=== PATIENT | male | born 1950 | race Caucasian/White ===

== ENCOUNTER 2021-07-12 13:02 | Inpatient (IN) | payer MEDICARE, MEDICAID ==
[~2021-07-12 13:02] MED LIST: Rocuronium Bromide 10 MG/ML (10ML VIAL) ONE
[2021-07-12] MEDS ORDERED: Ketamine 50 MG/ML (10ML VIAL) ONE (13:11)
[2021-07-12] MEDS ORDERED: EPINEPHrine 1 MG/10 ML Abboject SYRINGE ONE (13:15)
[2021-07-12] MEDS ORDERED: Amiodarone 150 MG/3 ML VIAL ONE (13:26)
[2021-07-12] MEDS ORDERED: Magnesium 2 GM/50 ML BAG (IN WATER) ONE (13:27)
[2021-07-12] MEDS ORDERED: Amiodarone In Dextrose 0 ML ONE (13:29)
[2021-07-12 13:34] LABS: #Monocytes 0.7 10x3/uL (0.0-1.1); #Neutrophils 12.1 10x3/uL (1.5-8.4); %Basophils 0.3 % (0.0-2.0); %Eosinophils 0.3 % (0.0-6.0); %Lymphocytes 4.1 % (18.0-47.0); %Monocytes 5.2 % (0.0-10.0); %Neutrophils 89.4 % (40.0-75.0); Hemoglobin 13.6 g/dL (13.5-17.5); Mean Corpuscular Hemoglobin 31.4 pg (27.0-33.0); Mean Corpuscular Volume 104.6 fl (81.2-95.1); Mean Platelet Volume 11.2 fl (7.4-10.4); Platelet Count 209 10x3/uL (150-450); RBC Distribution Width 14.4 % (11.5-14.5); Red Blood Cell (RBC) Count 4.33 10x6/uL (4.32-5.72); White Blood Cell (WBC) Count 13.6 10x3/uL (3.5-10.5)
[2021-07-12] MEDS ORDERED: Norepinephrine 8 MG/0.9% NS 250 ML ONE (13:37)
[2021-07-12 13:42] LABS: PTT 25.9 sec (22.0-33.0); Prothrombin Time 10.6 sec (9.5-12.1)
[2021-07-12 13:46] LABS: ALT (SGPT) 27 U/L (8-55); AST (SGOT) 25 U/L (5-34); Albumin 3.5 g/dL (3.4-4.8); Alkaline Phosphatase 101 U/L (40-110); Anion Gap 13 mmol/L (10-20); BUN (Urea Nitrogen) 28 mg/dL (8.4-25.7); Bilirubin, Total 0.3 mg/dL (0.2-1.2); Calc. Creatinine Clearance 0 mL/min (70-130); Calcium 9.2 mg/dL (7.8-10.44); Carbon Dioxide 35 mmol/L (23-31); Chloride 105 mmol/L (98-107); Globulin 3.3 g/dL (2.4-3.5); Glucose 131 mg/dL (83-110); Potassium 4.4 mmol/L (3.5-5.1); Protein, Total 6.8 g/dL (5.8-8.1); Sodium 149 mmol/L (136-145)
[2021-07-12 13:53] LABS: Actual Bicarbonate (HCO3a) 29.2 mEq/L (22-28); Base Excess (BEa) 3.1 mEq/L (-2.0 to +3.0); CO2 Tension 50.9 mmHg (35.0-45.0); Carboxyhemoglobin (COHb) 0.8 gm% (0.0-3.0); Hemoglobin (Hb) 13.5 g/dL (14.0-18.0); O2 Tension (PaO2), arterial 76.2 mmHg (> 70.0); Potassium - ABG Lab 4.2 mmol/L (3.70-5.30); Puncture Site LRA; pH, Arterial 7.38 (7.35-7.45)
[2021-07-12 13:56] LABS: ALV-art Gradient 573.175 mmHg (0-20)
[2021-07-12] MEDS ORDERED: Cefepime 2 GM VIAL ONE (14:03)
[2021-07-12 14:53] LABS: Bilirubin Neg (Negative); Blood, Urine 250 (Negative); Clarity Slightly Cloudy (Clear); Glucose, Urine (Dipstick) Normal (Negative); Ketone, Urine Negative (Negative); Leukocyte Negative (Negative); Nitrite Negative (Negative); Protein, Urine (Dipstick) 30 mg/dl (Neg-Trace); Urobilinogen Normal mg/dL (Less than 2)
[2021-07-12 15:15] LABS: SARS-CoV-2 NAA Rapid Test Not Detected (NotDetected)
[2021-07-12 15:25] LABS: RBC/HPF Greater than 50 HPF (0-3)
[2021-07-12 15:26] LABS: Bacteria/HPF 2+ HPF (None Seen); Squamous Epithelial 0-3 HPF (0-3)
[2021-07-12 15:27] LABS: Mucous/LPF 1+ LPF (<2+)
[2021-07-12 16:11] LABS: Lactic Acid 4.3 mmol/L (0.5-2.2)
[2021-07-12 16:49] LABS: Troponin I 0.304 ng/mL (< 0.028)
[2021-07-12] MEDS ORDERED: Acetaminophen 325 MG TAB PO PRN (16:55)
[2021-07-12] MEDS ORDERED: Acetaminophen 650 MG Suppository PR PRN (16:55)
[2021-07-12 17:23] LABS: Magnesium 2.5 mg/dL (1.6-2.6)
[2021-07-12] MEDS ORDERED: VANCOMYCIN 1.25 GM/250 ML BAG 1.25 GM in Premix Bag 1 BAG IVPB SCH (17:45)
[2021-07-12] MEDS: Cefepime 2 GM in Sodium Chloride 0.9% 100 ML IVPB SCH (18:00)
[2021-07-12] MEDS: Norepinephrine 8 MG/0.9% NS 250 ML IVPB PRN (18:40)
[2021-07-12] MEDS ORDERED: fentaNYL Citrate-0.9 % NaCl/PF 100 ML IVPB SCH (18:45)
[2021-07-12] MEDS: Sodium Chloride 0.45% 1,000 ML IV SCH (19:28)
[2021-07-12 19:41] LABS: Troponin I 0.978 ng/mL (< 0.028)
[2021-07-12] MEDS ORDERED: Vancomycin HCl 1.5 GM in Sodium Chloride 0.9% 250 ML 300 ML IVPB SCH (21:00)
[2021-07-12] MEDS: Famotidine/PF 20 mg/2ml Vial SLOW IVP SCH (21:07)
[2021-07-12] MEDS ORDERED: Vasopressin 20 UNIT, Admixture Fee 1 EACH in Sodium Chloride 0.9% 50 ML IV PRN (21:21)
[2021-07-12] MEDS ORDERED: Sodium Chloride 0.9% 1,000 ML IV SCH (22:00)
[2021-07-13] MEDS: Norepinephrine 8 MG/0.9% NS 250 ML IVPB PRN ×2 (00:55→10:22)
[2021-07-13 03:14] LABS: Base Excess (BEa) 2.2 mEq/L (-2.0 to +3.0); CO2 Tension 29.2 mmHg (35.0-45.0); Calcium, Ionized (arterial) 1.09 mmol/L (1.12-1.30); Carboxyhemoglobin (COHb) 0.5 gm% (0.0-3.0); Critical Notified Whom: SPESC; Hemoglobin (Hb) 12.9 g/dL (14.0-18.0); O2 Tension (PaO2), arterial 129.6 mmHg (> 70.0); Potassium - ABG Lab 4.4 mmol/L (3.70-5.30); Puncture Site RRA; pH, Arterial 7.53 (7.35-7.45)
[2021-07-13 04:29] LABS: Anion Gap 17 mmol/L (10-20); BUN (Urea Nitrogen) 35 mg/dL (8.4-25.7); Calc. Creatinine Clearance 57 mL/min (70-130); Calcium 8.3 mg/dL (7.8-10.44); Carbon Dioxide 25 mmol/L (23-31); Chloride 108 mmol/L (98-107); Glucose 100 mg/dL (83-110); Hemoglobin 11.9 g/dL (13.5-17.5); Magnesium 2.3 mg/dL (1.6-2.6); Mean Corpuscular Hemoglobin 30.9 pg (27.0-33.0); Mean Corpuscular Volume 99.7 fl (81.2-95.1); Mean Platelet Volume 11.2 fl (7.4-10.4); Platelet Count 217 10x3/uL (150-450); Potassium 4.2 mmol/L (3.5-5.1); RBC Distribution Width 14.6 % (11.5-14.5); Red Blood Cell (RBC) Count 3.85 10x6/uL (4.32-5.72); Sodium 146 mmol/L (136-145); White Blood Cell (WBC) Count 18.9 10x3/uL (3.5-10.5)
[2021-07-13 04:43] LABS: MDiff Complete? YES
[2021-07-13 04:47] LABS: Band 9 % (5-11); Lymphocytes 5 % (21-51); Monocytes 5 % (0-10); Neutrophil 81 % (42-75)
[2021-07-13 04:48] LABS: Platelet Morphology Comment Appears Adequate; RBC Morphology Normal
[2021-07-13] MEDS: Midazolam HCl 2 mg/2 ml Vial SLOW IVP PRN ×2 (05:08→08:38)
[2021-07-13] MEDS: Cefepime 2 GM in Sodium Chloride 0.9% 100 ML IVPB SCH ×2 (05:08→16:47)
[2021-07-13] MEDS: Sodium Chloride 0.45% 1,000 ML IV SCH ×2 (07:00→15:30)
[2021-07-13] MEDS: Famotidine/PF 20 mg/2ml Vial SLOW IVP SCH ×2 (08:38→21:01)
[2021-07-13] MEDS: Enoxaparin Sodium 40 MG/0.4 ML SYRINGE SC SCH (08:38)
[2021-07-13] MEDS: Aspirin 81 mg Enteric Coated Tablet PO SCH ×2 (08:38→09:18)
[2021-07-13] MEDS ORDERED: Fentanyl BOLUS 250 ML IVPB PRN (10:15)
[2021-07-13] MEDS ORDERED: Morphine 2 MG/ML VIAL SLOW IVP PRN (10:15)
[2021-07-13] MEDS ORDERED: Lorazepam 2 MG/ML VIAL SLOW IVP PRN (10:15)
[2021-07-13] MEDS ORDERED: Ventilator Sedation Protocol 1 EACH FS PRN (10:15)
[2021-07-13] MEDS ORDERED: Propofol BOLUS 1,000 MG/100 ML VIAL IV PRN (10:15)
[2021-07-13] MEDS: Propofol 1,000 MG/100 ML VIAL IV PRN ×3 (10:22→21:01)
[2021-07-13 12:45] LABS: Hemoglobin A1c 5.3 % (4.0-6.0)
[2021-07-13] MEDS: metroNIDAZOLE 500 MG in Premix Bag 1 BAG IVPB SCH ×2 (13:44→21:01)
[2021-07-13] MEDS: Dextrose 5 %-0.45 % NaCl 1,000 ML IV SCH (16:40)
[2021-07-13] MEDS: Vancomycin HCl 1 GM in Sodium Chloride 0.9% 250 ML 250 ML IVPB SCH (17:55)
[2021-07-13] MEDS: fentaNYL Citrate-0.9 % NaCl/PF 100 ML IVPB SCH (18:58)
[2021-07-13 21:53] LABS: Legionella Urinary Ag Negative (Negative); Strep pneumo Urine Ag NEGATIVE (NEGATIVE)
[2021-07-14] MEDS: Dextrose 5 %-0.45 % NaCl 1,000 ML IV SCH ×2 (01:48→13:11)
[2021-07-14 04:28] LABS: #Monocytes 0.5 10x3/uL (0.0-1.1); #Neutrophils 9.9 10x3/uL (1.5-8.4); %Basophils 0.1 % (0.0-2.0); %Lymphocytes 3.8 % (18.0-47.0); %Monocytes 4.4 % (0.0-10.0); %Neutrophils 90.1 % (40.0-75.0); Mean Corpuscular HGB CONC 33.3 g/dL (32.0-36.0); Mean Corpuscular Hemoglobin 31.4 pg (27.0-33.0); Mean Corpuscular Volume 94.3 fl (81.2-95.1); Mean Platelet Volume 11.4 fl (7.4-10.4); Platelet Count 181 10x3/uL (150-450); RBC Distribution Width 15.2 % (11.5-14.5); Red Blood Cell (RBC) Count 3.18 10x6/uL (4.32-5.72); White Blood Cell (WBC) Count 10.9 10x3/uL (3.5-10.5)
[2021-07-14 04:50] LABS: ALT (SGPT) 14 U/L (8-55); AST (SGOT) 14 U/L (5-34); Albumin 2.4 g/dL (3.4-4.8); Alkaline Phosphatase 66 U/L (40-110); Anion Gap 16 mmol/L (10-20); BUN (Urea Nitrogen) 34 mg/dL (8.4-25.7); Bilirubin, Direct 0.2 mg/dL (0.1-0.3); Bilirubin, Total 0.3 mg/dL (0.2-1.2); Calc. Creatinine Clearance 59 mL/min (70-130); Carbon Dioxide 21 mmol/L (23-31); Cardiac Risk 2.5 (Less than 4.5); Chloride 111 mmol/L (98-107); Cholesterol 99 mg/dl (< 200 Desired); Glucose 126 mg/dL (83-110); HDL Cholesterol 39 mg/dL (>60 Neg Risk); LDL Cholesterol, Calculated 42 mg/dL; Magnesium 2.3 mg/dL (1.6-2.6); Potassium 3.5 mmol/L (3.5-5.1); Protein, Total 5.1 g/dL (5.8-8.1); Sodium 144 mmol/L (136-145); Triglycerides 88 mg/dL (Less than 150)
[2021-07-14] MEDS: fentaNYL Citrate-0.9 % NaCl/PF 100 ML IVPB SCH ×2 (05:42→20:26)
[2021-07-14] MEDS: Propofol 1,000 MG/100 ML VIAL IV PRN ×2 (05:42→18:19)
[2021-07-14] MEDS: Cefepime 2 GM in Sodium Chloride 0.9% 100 ML IVPB SCH ×2 (05:42→17:11)
[2021-07-14] MEDS: metroNIDAZOLE 500 MG in Premix Bag 1 BAG IVPB SCH ×3 (05:42→22:45)
[2021-07-14] MEDS: Aspirin 81 mg Enteric Coated Tablet PO SCH (08:07)
[2021-07-14] MEDS: Enoxaparin Sodium 40 MG/0.4 ML SYRINGE SC SCH (08:07)
[2021-07-14] MEDS: Famotidine/PF 20 mg/2ml Vial SLOW IVP SCH (08:09)
[2021-07-14 10:51] LABS: Actual Bicarbonate (HCO3a) 23.2 mEq/L (22-28); Base Excess (BEa) 2.2 mEq/L (-2.0 to +3.0); CO2 Tension 24.8 mmHg (35.0-45.0); Calcium, Ionized (arterial) 1.09 mmol/L (1.12-1.30); Carboxyhemoglobin (COHb) 0.3 gm% (0.0-3.0); Hemoglobin (Hb) 9.9 g/dL (14.0-18.0); O2 Tension (PaO2), arterial 184.7 mmHg (> 70.0); Potassium - ABG Lab 3.2 mmol/L (3.70-5.30); Puncture Site RRA; pH, Arterial 7.59 (7.35-7.45)
[2021-07-14 11:27] LABS: Actual Bicarbonate (HCO3a) 23.5 mEq/L (22-28); Base Excess (BEa) 1.1 mEq/L (-2.0 to +3.0); CO2 Tension 29.4 mmHg (35.0-45.0); Calcium, Ionized (arterial) 1.12 mmol/L (1.12-1.30); O2 Tension (PaO2), arterial 151.4 mmHg (> 70.0); Puncture Site RRA; pH, Arterial 7.52 (7.35-7.45)
[2021-07-14] MEDS: Furosemide 40 MG/4 ML VIAL SLOW IVP SCH ×2 (11:54→18:39)
[2021-07-14] MEDS: Albumin 25% 25 GM/100 ML BOT IVPB SCH ×2 (11:54→18:39)
[2021-07-14 11:59] LABS: CKMB 2.8 ng/mL (0-6.6)
[2021-07-14] MEDS ORDERED: Aspirin Chewable 81 MG TAB PO SCH (12:30)
[2021-07-14] MEDS: Aspirin Chewable 81 MG TAB PO SCH (13:10)
[2021-07-14] MEDS: Norepinephrine 8 MG/0.9% NS 250 ML IVPB PRN (13:22)
[2021-07-14 17:14] LABS: Vancomycin, Trough 14.3 ug/mL
[2021-07-14] MEDS: Vancomycin HCl 1 GM in Sodium Chloride 0.9% 250 ML 250 ML IVPB SCH (17:19)
[2021-07-15] MEDS: Albumin 25% 25 GM/100 ML BOT IVPB SCH (02:17)
[2021-07-15] MEDS: Furosemide 40 MG/4 ML VIAL SLOW IVP SCH (02:17)
[2021-07-15] MEDS: Cefepime 2 GM in Sodium Chloride 0.9% 100 ML IVPB SCH ×2 (06:06→16:43)
[2021-07-15] MEDS: Dextrose 5 %-0.45 % NaCl 1,000 ML IV SCH ×2 (06:06→08:08)
[2021-07-15] MEDS: metroNIDAZOLE 500 MG in Premix Bag 1 BAG IVPB SCH ×3 (06:07→21:52)
[2021-07-15 06:08] LABS: #Monocytes 0.6 10x3/uL (0.0-1.1); #Neutrophils 8.4 10x3/uL (1.5-8.4); %Basophils 0.4 % (0.0-2.0); %Eosinophils 0.2 % (0.0-6.0); %Lymphocytes 5.2 % (18.0-47.0); %Monocytes 5.9 % (0.0-10.0); %Neutrophils 85.5 % (40.0-75.0); Mean Corpuscular HGB CONC 32.2 g/dL (32.0-36.0); Mean Corpuscular Hemoglobin 31.2 pg (27.0-33.0); Mean Corpuscular Volume 96.9 fl (81.2-95.1); Mean Platelet Volume 11.8 fl (7.4-10.4); Platelet Count 160 10x3/uL (150-450); RBC Distribution Width 15.4 % (11.5-14.5); Red Blood Cell (RBC) Count 3.21 10x6/uL (4.32-5.72); White Blood Cell (WBC) Count 9.8 10x3/uL (3.5-10.5)
[2021-07-15 06:19] LABS: Anion Gap 18 mmol/L (10-20); BUN (Urea Nitrogen) 32 mg/dL (8.4-25.7); Calc. Creatinine Clearance 57 mL/min (70-130); Calcium 8.5 mg/dL (7.8-10.44); Carbon Dioxide 22 mmol/L (23-31); Chloride 111 mmol/L (98-107); Glucose 82 mg/dL (83-110); Magnesium 2.2 mg/dL (1.6-2.6); Sodium 148 mmol/L (136-145)
[2021-07-15 06:34] LABS: Actual Bicarbonate (HCO3a) 23.7 mEq/L (22-28); Base Excess (BEa) -0.1 mEq/L (-2.0 to +3.0); CO2 Tension 35.3 mmHg (35.0-45.0); Calcium, Ionized (arterial) 1.12 mmol/L (1.12-1.30); Carboxyhemoglobin (COHb) 0.3 gm% (0.0-3.0); Hemoglobin (Hb) 10.5 g/dL (14.0-18.0); O2 Tension (PaO2), arterial 135.7 mmHg (> 70.0); Potassium - ABG Lab 2.9 mmol/L (3.70-5.30); Puncture Site RRA; pH, Arterial 7.45 (7.35-7.45)
[2021-07-15 06:37] LABS: ALV-art Gradient 69.725 mmHg (0-20)
[2021-07-15] MEDS: Enoxaparin Sodium 40 MG/0.4 ML SYRINGE SC SCH (08:05)
[2021-07-15] MEDS: Aspirin Chewable 81 MG TAB PO SCH (08:05)
[2021-07-15] MEDS: Famotidine/PF 20 mg/2ml Vial SLOW IVP SCH (08:08)
[2021-07-15] MEDS ORDERED: Potassium Bicarbonate/Cit Ac 20 MEQ TAB PER TUBE SCH ×2 (08:15→13:30)
[2021-07-15] MEDS ORDERED: Lactated Ringer's 1,000 ML IV SCH (10:30)
[2021-07-15] MEDS: Propofol 1,000 MG/100 ML VIAL IV PRN ×2 (10:41→23:55)
[2021-07-15] MEDS: fentaNYL Citrate-0.9 % NaCl/PF 100 ML IVPB SCH ×2 (10:48→23:55)
[2021-07-15] MEDS ORDERED: Albumin 25% 25 GM/100 ML BOT IVPB SCH (11:00)
[2021-07-15] MEDS: Dexmedetomidine In 0.9 % NaCl 100 ML IVPB SCH (13:48)
[2021-07-15] MEDS ORDERED: Midazolam HCl 2 mg/2 ml Vial SLOW IVP PRN (18:27)
[2021-07-15] MEDS: Fentanyl 100 MCG/2 ML VIAL SLOW IVP PRN (18:44)
[2021-07-15] MEDS ORDERED: Sodium Chloride 0.9% 500 ML IVPB SCH (18:45)
[2021-07-16] MEDS ORDERED: OLANZapine 5 MG TAB PER TUBE SCH (00:45)
[2021-07-16] MEDS: OLANZapine 5 MG TAB PER TUBE SCH (01:06)
[2021-07-16 03:55] LABS: #Basophils 0.1 10x3/uL (0.0-0.2); #Monocytes 0.4 10x3/uL (0.0-1.1); #Neutrophils 8.1 10x3/uL (1.5-8.4); %Basophils 0.5 % (0.0-2.0); %Eosinophils 0.4 % (0.0-6.0); %Lymphocytes 6.3 % (18.0-47.0); %Monocytes 4.2 % (0.0-10.0); %Neutrophils 83.1 % (40.0-75.0); Mean Corpuscular HGB CONC 32.3 g/dL (32.0-36.0); Mean Corpuscular Hemoglobin 31.2 pg (27.0-33.0); Mean Corpuscular Volume 96.6 fl (81.2-95.1); Mean Platelet Volume 11.6 fl (7.4-10.4); Platelet Count 177 10x3/uL (150-450); RBC Distribution Width 15.5 % (11.5-14.5); Red Blood Cell (RBC) Count 3.21 10x6/uL (4.32-5.72); White Blood Cell (WBC) Count 9.7 10x3/uL (3.5-10.5)
[2021-07-16 04:08] LABS: Anion Gap 11 mmol/L (10-20); BUN (Urea Nitrogen) 35 mg/dL (8.4-25.7); Calc. Creatinine Clearance 62 mL/min (70-130); Calcium 7.8 mg/dL (7.8-10.44); Carbon Dioxide 26 mmol/L (23-31); Chloride 113 mmol/L (98-107); Glucose 122 mg/dL (83-110); Magnesium 1.9 mg/dL (1.6-2.6); Potassium 3.2 mmol/L (3.5-5.1); Sodium 147 mmol/L (136-145)
[2021-07-16] MEDS: Potassium Chloride 20 MEQ in Premix Bag 1 BAG IVPB SCH ×2 (04:57→08:43)
[2021-07-16] MEDS: Cefepime 2 GM in Sodium Chloride 0.9% 100 ML IVPB SCH ×2 (04:57→17:56)
[2021-07-16] MEDS ORDERED: Cefepime 2 GM VIAL ONE (04:58)
[2021-07-16] MEDS: Fentanyl 100 MCG/2 ML VIAL SLOW IVP PRN (05:51)
[2021-07-16] MEDS: metroNIDAZOLE 500 MG in Premix Bag 1 BAG IVPB SCH ×3 (05:52→21:08)
[2021-07-16 06:00] LABS: Anisocytosis SLIGHT = 6-15 cells (100X) (0-5/hpf); Lymphocytes 8 % (21-51); Monocytes 4 % (0-10); Platelet Morphology Comment Appears Adequate
[2021-07-16 06:01] LABS: Hypochromia SLIGHT = 6-15 cells (100X) (0-5/hpf); Macrocytosis SLIGHT = 6-15 cells (100X) (0-5/hpf); Microcytosis SLIGHT = 6-15 cells (100X) (0-5/hpf); Polychromasia SLIGHT = 2-3 cells (100X) (0-2/hpf)
[2021-07-16] MEDS ORDERED: Scopolamine 1.5 mg/72 hour Patch TD SCH (08:30)
[2021-07-16 08:37] LABS: Actual Bicarbonate (HCO3a) 21.8 mEq/L (22-28); Base Excess (BEa) -3.2 mEq/L (-2.0 to +3.0); CO2 Tension 38.8 mmHg (35.0-45.0); Calcium, Ionized (arterial) 1.12 mmol/L (1.12-1.30); Carboxyhemoglobin (COHb) 0.3 gm% (0.0-3.0); Hemoglobin (Hb) 10.8 g/dL (14.0-18.0); O2 Tension (PaO2), arterial 93.5 mmHg (> 70.0); Potassium - ABG Lab 3.5 mmol/L (3.70-5.30); Puncture Site RRA; pH, Arterial 7.37 (7.35-7.45)
[2021-07-16] MEDS: Enoxaparin Sodium 40 MG/0.4 ML SYRINGE SC SCH (08:44)
[2021-07-16] MEDS: Famotidine/PF 20 mg/2ml Vial SLOW IVP SCH ×2 (08:44→20:40)
[2021-07-16] MEDS: Aspirin Chewable 81 MG TAB PO SCH (08:45)
[2021-07-16] MEDS ORDERED: Polyethylene Glycol 3350 17 GM Packet PER TUBE PRN (10:11)
[2021-07-17] MEDS: fentaNYL Citrate-0.9 % NaCl/PF 100 ML IVPB SCH (03:20)
[2021-07-17 04:06] LABS: Actual Bicarbonate (HCO3a) 24.9 mEq/L (22-28); Base Excess (BEa) 0.4 mEq/L (-2.0 to +3.0); CO2 Tension 39.2 mmHg (35.0-45.0); Calcium, Ionized (arterial) 1.11 mmol/L (1.12-1.30); Carboxyhemoglobin (COHb) 0.4 gm% (0.0-3.0); Hemoglobin (Hb) 10.1 g/dL (14.0-18.0); O2 Tension (PaO2), arterial 92.1 mmHg (> 70.0); Potassium - ABG Lab 3.3 mmol/L (3.70-5.30); Puncture Site RRA; pH, Arterial 7.42 (7.35-7.45)
[2021-07-17] MEDS: Cefepime 2 GM in Sodium Chloride 0.9% 100 ML IVPB SCH ×2 (05:05→17:29)
[2021-07-17 05:30] LABS: Hemoglobin 9.7 g/dL (13.5-17.5); Mean Corpuscular HGB CONC 31.6 g/dL (32.0-36.0); Mean Corpuscular Hemoglobin 31.3 pg (27.0-33.0); Mean Platelet Volume 11.7 fl (7.4-10.4); Platelet Count 186 10x3/uL (150-450); RBC Distribution Width 15.9 % (11.5-14.5); White Blood Cell (WBC) Count 9.6 10x3/uL (3.5-10.5)
[2021-07-17 05:33] LABS: MDiff Complete? YES; Manual Diff?? YES
[2021-07-17 05:52] LABS: Anion Gap 13 mmol/L (10-20); BUN (Urea Nitrogen) 43 mg/dL (8.4-25.7); Calc. Creatinine Clearance 77 mL/min (70-130); Calcium 7.8 mg/dL (7.8-10.44); Carbon Dioxide 25 mmol/L (23-31); Chloride 115 mmol/L (98-107); Glucose 110 mg/dL (83-110); Magnesium 2.3 mg/dL (1.6-2.6); Potassium 3.4 mmol/L (3.5-5.1); Sodium 150 mmol/L (136-145)
[2021-07-17 05:55] LABS: Band 1 % (5-11); Eosinophils 1 % (0-10); Lymphocytes 10 % (21-51); Neutrophil 87 % (42-75); Platelet Morphology Comment PLT clumps seen-ADEQ; Reactive Lymphocytes 1 % (0-10)
[2021-07-17 05:56] LABS: Anisocytosis SLIGHT = 6-15 cells (100X) (0-5/hpf); Hypochromia SLIGHT = 6-15 cells (100X) (0-5/hpf); Macrocytosis SLIGHT = 6-15 cells (100X) (0-5/hpf); Microcytosis SLIGHT = 6-15 cells (100X) (0-5/hpf)
[2021-07-17 05:57] LABS: Basophilic Stippling SLIGHT = 1-2 cells (100X) (None Seen); Elliptocytes SLIGHT = 2-5 cells (100X) (0-1/hpf); Target Cells SLIGHT = 2-5 cells (100X) (0-1/hpf)
[2021-07-17] MEDS: metroNIDAZOLE 500 MG in Premix Bag 1 BAG IVPB SCH ×3 (06:15→21:14)
[2021-07-17] MEDS ORDERED: Dextrose 5% in Water 1,000 ML IV SCH (08:00)
[2021-07-17] MEDS ORDERED: Potassium Chloride 20 MEQ TAB PER TUBE SCH (08:00)
[2021-07-17] MEDS: Enoxaparin Sodium 40 MG/0.4 ML SYRINGE SC SCH (08:24)
[2021-07-17] MEDS: Famotidine/PF 20 mg/2ml Vial SLOW IVP SCH ×2 (08:25→20:17)
[2021-07-17] MEDS: Polyethylene Glycol 3350 17 GM Packet PER TUBE SCH (11:00)
[2021-07-17] MEDS ORDERED: Polyethylene Glycol 3350 17 GM Packet PER TUBE SCH (11:00)
[2021-07-17] MEDS ORDERED: cefTRIAXone\\ROCEPHIN 1 GM in Sodium Chloride 0.9% 100 ML IVPB SCH (11:00)
[2021-07-17] MEDS: Propofol 1,000 MG/100 ML VIAL IV PRN (11:00)
[2021-07-17] MEDS: Dextrose 5% in Water 1,000 ML IV SCH ×2 (11:00→20:15)
[2021-07-17] MEDS ORDERED: Haloperidol Lactate 5 MG/ML VIAL SLOW IVP PRN (16:21)
[2021-07-17] MEDS: Dexmedetomidine In 0.9 % NaCl 100 ML IVPB SCH (16:40)
[2021-07-17] MEDS ORDERED: Norepinephrine 8 MG/0.9% NS 250 ML ONE (18:21)
[2021-07-17] MEDS: Budesonide 0.5 MG/2 ML NEB NEB SCH (19:05)
[2021-07-17] MEDS ORDERED: Norepinephrine 8 MG/0.9% NS 250 ML IVPB SCH (19:15)
[2021-07-17] MEDS: OLANZapine 5 MG TAB PER TUBE SCH (20:17)
[2021-07-18] MEDS: Dexmedetomidine In 0.9 % NaCl 100 ML IVPB SCH ×2 (00:16→15:34)
[2021-07-18 02:58] LABS: Base Excess (BEa) 0.8 mEq/L (-2.0 to +3.0); Carboxyhemoglobin (COHb) 0.8 gm% (0.0-3.0); Hemoglobin (Hb) 9.7 g/dL (14.0-18.0); O2 Tension (PaO2), arterial 62.4 mmHg (> 70.0); Potassium - ABG Lab 3.1 mmol/L (3.70-5.30); Puncture Site RRA; pH, Arterial 7.48 (7.35-7.45)
[2021-07-18] MEDS: Cefepime 2 GM in Sodium Chloride 0.9% 100 ML IVPB SCH ×2 (05:04→16:27)
[2021-07-18 05:36] LABS: Anion Gap 12 mmol/L (10-20); BUN (Urea Nitrogen) 40 mg/dL (8.4-25.7); Calc. Creatinine Clearance 88 mL/min (70-130); Calcium 8.1 mg/dL (7.8-10.44); Carbon Dioxide 23 mmol/L (23-31); Cardiac Risk 3.1 (Less than 4.5); Chloride 109 mmol/L (98-107); Cholesterol 92 mg/dl (< 200 Desired); Glucose 153 mg/dL (83-110); HDL Cholesterol 30 mg/dL (>60 Neg Risk); LDL Cholesterol, Calculated 48 mg/dL; Magnesium 2.1 mg/dL (1.6-2.6); Potassium 3.2 mmol/L (3.5-5.1); Sodium 141 mmol/L (136-145); Triglycerides 69 mg/dL (Less than 150)
[2021-07-18] MEDS: Dextrose 5% in Water 1,000 ML IV SCH (05:56)
[2021-07-18] MEDS: metroNIDAZOLE 500 MG in Premix Bag 1 BAG IVPB SCH (05:57)
[2021-07-18] MEDS ORDERED: Potassium Chloride 20 MEQ TAB PO SCH ×2 (06:30→16:00)
[2021-07-18 07:22] LABS: Hemoglobin 9.5 g/dL (13.5-17.5); MDiff Complete? YES; Mean Corpuscular HGB CONC 32.4 g/dL (32.0-36.0); Mean Corpuscular Hemoglobin 31.3 pg (27.0-33.0); Mean Corpuscular Volume 96.4 fl (81.2-95.1); Mean Platelet Volume 11.5 fl (7.4-10.4); Platelet Count 168 10x3/uL (150-450); Red Blood Cell (RBC) Count 3.04 10x6/uL (4.32-5.72); White Blood Cell (WBC) Count 9.7 10x3/uL (3.5-10.5)
[2021-07-18 07:45] LABS: Eosinophils 1 % (0-10); Lymphocytes 14 % (21-51); Monocytes 6 % (0-10); Neutrophil 79 % (42-75)
[2021-07-18 07:46] LABS: Platelet Morphology Comment Appears Decreased; RBC Morphology Normal
[2021-07-18] MEDS: Budesonide 0.5 MG/2 ML NEB NEB SCH ×2 (07:58→19:40)
[2021-07-18] MEDS: Pantoprazole 40 MG GRANULES PACKET PO SCH (08:20)
[2021-07-18] MEDS: Aspirin Chewable 81 MG TAB PO SCH (08:20)
[2021-07-18] MEDS: Polyethylene Glycol 3350 17 GM Packet PER TUBE SCH (08:20)
[2021-07-18] MEDS: Enoxaparin Sodium 40 MG/0.4 ML SYRINGE SC SCH (08:21)
[2021-07-18 09:49] LABS: Phosphorus 1.7 mg/dL (2.3-4.7)
[2021-07-18 12:28] LABS: Hemoglobin A1c 5.4 % (4.0-6.0)
[2021-07-18 13:06] LABS: ALT (SGPT) 20 U/L (8-55); AST (SGOT) 30 U/L (5-34); Albumin 3.2 g/dL (3.4-4.8); Alkaline Phosphatase 50 U/L (40-110); Bilirubin, Direct 0.1 mg/dL (0.1-0.3); Bilirubin, Total 0.3 mg/dL (0.2-1.2); Protein, Total 5.4 g/dL (5.8-8.1)
[2021-07-18] MEDS: Albumin 25% 25 GM/100 ML BOT IVPB SCH ×2 (13:40→17:46)
[2021-07-18] MEDS ORDERED: Potassium Phosphate 22 MMOL in Sodium Chloride 0.9% 250 ML 250 ML IVPB SCH (14:00)
[2021-07-18] MEDS: OLANZapine 5 MG TAB PER TUBE SCH (20:41)
[2021-07-18] MEDS: Atorvastatin Calcium 20 MG TAB PER TUBE SCH (20:42)
[2021-07-18] MEDS: Furosemide 40 MG/4 ML VIAL SLOW IVP SCH (20:42)
[2021-07-18] MEDS ORDERED: Atorvastatin Calcium 40 MG TAB PER TUBE SCH (21:00)
[2021-07-19] MEDS: Albumin 25% 25 GM/100 ML BOT IVPB SCH ×2 (00:07→05:55)
[2021-07-19 03:55] LABS: Actual Bicarbonate (HCO3a) 23.7 mEq/L (22-28); Base Excess (BEa) -1.6 mEq/L (-2.0 to +3.0); CO2 Tension 42.6 mmHg (35.0-45.0); Calcium, Ionized (arterial) 1.16 mmol/L (1.12-1.30); Carboxyhemoglobin (COHb) 0.3 gm% (0.0-3.0); Hemoglobin (Hb) 9.5 g/dL (14.0-18.0); O2 Tension (PaO2), arterial 95.6 mmHg (> 70.0); Potassium - ABG Lab 4.3 mmol/L (3.70-5.30); Puncture Site RRA; pH, Arterial 7.36 (7.35-7.45)
[2021-07-19 04:37] LABS: Anion Gap 16 mmol/L (10-20); BUN (Urea Nitrogen) 43 mg/dL (8.4-25.7); Calc. Creatinine Clearance 91 mL/min (70-130); Calcium 8.3 mg/dL (7.8-10.44); Carbon Dioxide 22 mmol/L (23-31); Chloride 110 mmol/L (98-107); Glucose 109 mg/dL (83-110); Magnesium 2.1 mg/dL (1.6-2.6); Potassium 4.4 mmol/L (3.5-5.1); Sodium 144 mmol/L (136-145)
[2021-07-19 04:46] LABS: Hemoglobin 8.2 g/dL (13.5-17.5); Mean Corpuscular HGB CONC 32.4 g/dL (32.0-36.0); Mean Corpuscular Hemoglobin 31.3 pg (27.0-33.0); Mean Corpuscular Volume 96.6 fl (81.2-95.1); Mean Platelet Volume 11.4 fl (7.4-10.4); Platelet Count 153 10x3/uL (150-450); RBC Distribution Width 16.3 % (11.5-14.5); Red Blood Cell (RBC) Count 2.62 10x6/uL (4.32-5.72); White Blood Cell (WBC) Count 10.8 10x3/uL (3.5-10.5)
[2021-07-19] MEDS ORDERED: Cefepime 2 GM VIAL ONE (04:59)
[2021-07-19] MEDS: Budesonide 0.5 MG/2 ML NEB NEB SCH ×2 (05:16→19:20)
[2021-07-19 05:53] LABS: MDiff Complete? YES
[2021-07-19 06:03] LABS: Band 1 % (5-11); Eosinophils 2 % (0-10); Lymphocytes 8 % (21-51); Metamyelocyte 3 % (0-0); Monocytes 6 % (0-10); Neutrophil 74 % (42-75); Reactive Lymphocytes 6 % (0-10)
[2021-07-19 06:04] LABS: Anisocytosis SLIGHT = 6-15 cells (100X) (0-5/hpf); Platelet Clumps SLIGHT; Platelet Morphology Comment Appears Adequate
[2021-07-19] MEDS: Cefepime 2 GM in Sodium Chloride 0.9% 100 ML IVPB SCH ×2 (06:24→18:05)
[2021-07-19] MEDS: Aspirin Chewable 81 MG TAB PO SCH (08:19)
[2021-07-19] MEDS: Furosemide 40 MG/4 ML VIAL SLOW IVP SCH ×2 (08:19→21:22)
[2021-07-19] MEDS: Pantoprazole 40 MG GRANULES PACKET PO SCH (08:19)
[2021-07-19] MEDS: Enoxaparin Sodium 40 MG/0.4 ML SYRINGE SC SCH (08:19)
[2021-07-19] MEDS: Scopolamine 1.5 mg/72 hour Patch TD SCH (08:32)
[2021-07-19] MEDS: Polyethylene Glycol 3350 17 GM Packet PER TUBE SCH (10:59)
[2021-07-19] MEDS: Dexmedetomidine In 0.9 % NaCl 100 ML IVPB SCH (11:11)
[2021-07-19 15:09] LABS: SARS-CoV-2 PCR by NAA Not Detected (NotDetected)
[2021-07-19] MEDS: Atorvastatin Calcium 20 MG TAB PER TUBE SCH (21:22)
[2021-07-19] MEDS: OLANZapine 5 MG TAB PER TUBE SCH (21:22)
[2021-07-20 03:05] LABS: Actual Bicarbonate (HCO3a) 26.6 mEq/L (22-28); CO2 Tension 41.7 mmHg (35.0-45.0); Calcium, Ionized (arterial) 1.15 mmol/L (1.12-1.30); Carboxyhemoglobin (COHb) 0.5 gm% (0.0-3.0); Hemoglobin (Hb) 10.5 g/dL (14.0-18.0); O2 Tension (PaO2), arterial 69.7 mmHg (> 70.0); Potassium - ABG Lab 4.3 mmol/L (3.70-5.30); Puncture Site RRA; pH, Arterial 7.42 (7.35-7.45)
[2021-07-20 03:07] LABS: ALV-art Gradient 92.075 mmHg (0-20)
[2021-07-20 03:33] LABS: #Eosinphils 0.1 10x3/uL (0.0-0.5); #Monocytes 0.7 10x3/uL (0.0-1.1); #Neutrophils 7.4 10x3/uL (1.5-8.4); %Basophils 0.4 % (0.0-2.0); %Eosinophils 0.7 % (0.0-6.0); %Lymphocytes 8.4 % (18.0-47.0); %Monocytes 6.9 % (0.0-10.0); %Neutrophils 78.6 % (40.0-75.0); Mean Corpuscular HGB CONC 33.1 g/dL (32.0-36.0); Mean Corpuscular Hemoglobin 31.9 pg (27.0-33.0); Mean Corpuscular Volume 96.5 fl (81.2-95.1); Mean Platelet Volume 11.2 fl (7.4-10.4); Platelet Count 164 10x3/uL (150-450); RBC Distribution Width 16.4 % (11.5-14.5); Red Blood Cell (RBC) Count 2.82 10x6/uL (4.32-5.72); White Blood Cell (WBC) Count 9.4 10x3/uL (3.5-10.5)
[2021-07-20 03:49] LABS: Anion Gap 17 mmol/L (10-20); BUN (Urea Nitrogen) 47 mg/dL (8.4-25.7); Calc. Creatinine Clearance 89 mL/min (70-130); Calcium 8.5 mg/dL (7.8-10.44); Carbon Dioxide 25 mmol/L (23-31); Chloride 109 mmol/L (98-107); Glucose 107 mg/dL (83-110); Magnesium 2.2 mg/dL (1.6-2.6); Potassium 4.1 mmol/L (3.5-5.1); Sodium 147 mmol/L (136-145)
[2021-07-20] MEDS: Cefepime 2 GM in Sodium Chloride 0.9% 100 ML IVPB SCH ×2 (04:11→16:03)
[2021-07-20] MEDS: Budesonide 0.5 MG/2 ML NEB NEB SCH ×2 (07:33→19:26)
[2021-07-20] MEDS: Pantoprazole 40 MG GRANULES PACKET PO SCH (09:20)
[2021-07-20] MEDS: Aspirin Chewable 81 MG TAB PO SCH (09:20)
[2021-07-20] MEDS: Furosemide 40 MG/4 ML VIAL SLOW IVP SCH ×2 (09:24→21:26)
[2021-07-20] MEDS: Enoxaparin Sodium 40 MG/0.4 ML SYRINGE SC SCH (09:25)
[2021-07-20] MEDS: Polyethylene Glycol 3350 17 GM Packet PER TUBE SCH (11:00)
[2021-07-20 17:11] VITALS: TEMP 97.3
[2021-07-20] MEDS: Atorvastatin Calcium 20 MG TAB PER TUBE SCH (21:26)
[2021-07-20] MEDS: OLANZapine 5 MG TAB PER TUBE SCH (21:26)
[2021-07-21 03:55] LABS: ALV-art Gradient 59.925 mmHg (0-20); Actual Bicarbonate (HCO3a) 28.3 mEq/L (22-28); Base Excess (BEa) 3.5 mEq/L (-2.0 to +3.0); CO2 Tension 44.3 mmHg (35.0-45.0); Calcium, Ionized (arterial) 1.16 mmol/L (1.12-1.30); Carboxyhemoglobin (COHb) 0.5 gm% (0.0-3.0); Hemoglobin (Hb) 10.1 g/dL (14.0-18.0); O2 Tension (PaO2), arterial 98.6 mmHg (> 70.0); Potassium - ABG Lab 3.9 mmol/L (3.70-5.30); Puncture Site LRA; pH, Arterial 7.42 (7.35-7.45)
[2021-07-21 04:50] LABS: Anion Gap 15 mmol/L (10-20); BUN (Urea Nitrogen) 43 mg/dL (8.4-25.7); Calc. Creatinine Clearance 95 mL/min (70-130); Calcium 8.7 mg/dL (7.8-10.44); Carbon Dioxide 30 mmol/L (23-31); Chloride 105 mmol/L (98-107); Glucose 118 mg/dL (83-110); Potassium 4.1 mmol/L (3.5-5.1); Sodium 146 mmol/L (136-145)
[2021-07-21 05:08] LABS: #Basophils 0.1 10x3/uL (0.0-0.2); #Eosinphils 0.1 10x3/uL (0.0-0.5); #Monocytes 0.6 10x3/uL (0.0-1.1); #Neutrophils 7.8 10x3/uL (1.5-8.4); %Basophils 0.5 % (0.0-2.0); %Eosinophils 0.5 % (0.0-6.0); %Lymphocytes 6.9 % (18.0-47.0); %Monocytes 6.3 % (0.0-10.0); %Neutrophils 82.4 % (40.0-75.0); Hemoglobin 9.4 g/dL (13.5-17.5); Mean Corpuscular HGB CONC 32.3 g/dL (32.0-36.0); Mean Corpuscular Hemoglobin 31.5 pg (27.0-33.0); Mean Corpuscular Volume 97.7 fl (81.2-95.1); Mean Platelet Volume 11.5 fl (7.4-10.4); Platelet Count 182 10x3/uL (150-450); RBC Distribution Width 16.6 % (11.5-14.5); Red Blood Cell (RBC) Count 2.98 10x6/uL (4.32-5.72); White Blood Cell (WBC) Count 9.4 10x3/uL (3.5-10.5)
[2021-07-21] MEDS: Cefepime 2 GM in Sodium Chloride 0.9% 100 ML IVPB SCH ×2 (05:34→16:01)
[2021-07-21] MEDS: Budesonide 0.5 MG/2 ML NEB NEB SCH ×2 (07:09→20:23)
[2021-07-21] MEDS: Aspirin Chewable 81 MG TAB PO SCH (08:21)
[2021-07-21] MEDS: Enoxaparin Sodium 40 MG/0.4 ML SYRINGE SC SCH (08:21)
[2021-07-21] MEDS: Pantoprazole 40 MG GRANULES PACKET PO SCH (08:21)
[2021-07-21] MEDS: Polyethylene Glycol 3350 17 GM Packet PER TUBE SCH (10:42)
[2021-07-21] MEDS: Atorvastatin Calcium 20 MG TAB PER TUBE SCH (21:36)
[2021-07-21] MEDS: OLANZapine 5 MG TAB PER TUBE SCH (21:36)
[2021-07-22 04:11] LABS: Actual Bicarbonate (HCO3a) 30.5 mEq/L (22-28); Base Excess (BEa) 6.2 mEq/L (-2.0 to +3.0); CO2 Tension 42.9 mmHg (35.0-45.0); Calcium, Ionized (arterial) 1.14 mmol/L (1.12-1.30); Carboxyhemoglobin (COHb) 0.7 gm% (0.0-3.0); O2 Tension (PaO2), arterial 82.8 mmHg (> 70.0); Potassium - ABG Lab 4.8 mmol/L (3.70-5.30); Puncture Site LRA; pH, Arterial 7.47 (7.35-7.45)
[2021-07-22 04:14] LABS: ALV-art Gradient 77.475 mmHg (0-20)
[2021-07-22] MEDS: Cefepime 2 GM in Sodium Chloride 0.9% 100 ML IVPB SCH ×2 (05:30→16:45)
[2021-07-22 05:38] LABS: #Monocytes 0.5 10x3/uL (0.0-1.1); #Neutrophils 8.4 10x3/uL (1.5-8.4); %Basophils 0.4 % (0.0-2.0); %Eosinophils 0.4 % (0.0-6.0); %Lymphocytes 6.8 % (18.0-47.0); %Monocytes 5.2 % (0.0-10.0); %Neutrophils 85.2 % (40.0-75.0); Hemoglobin 9.3 g/dL (13.5-17.5); Mean Corpuscular HGB CONC 32.4 g/dL (32.0-36.0); Mean Corpuscular Hemoglobin 31.8 pg (27.0-33.0); Mean Corpuscular Volume 98.3 fl (81.2-95.1); Mean Platelet Volume 11.4 fl (7.4-10.4); Platelet Count 203 10x3/uL (150-450); RBC Distribution Width 16.7 % (11.5-14.5); Red Blood Cell (RBC) Count 2.92 10x6/uL (4.32-5.72); White Blood Cell (WBC) Count 9.9 10x3/uL (3.5-10.5)
[2021-07-22 05:50] LABS: Anion Gap 16 mmol/L (10-20); BUN (Urea Nitrogen) 39 mg/dL (8.4-25.7); Calc. Creatinine Clearance 103 mL/min (70-130); Calcium 8.7 mg/dL (7.8-10.44); Carbon Dioxide 28 mmol/L (23-31); Chloride 106 mmol/L (98-107); Glucose 129 mg/dL (83-110); Potassium 4.1 mmol/L (3.5-5.1); Sodium 146 mmol/L (136-145)
[2021-07-22] MEDS: Budesonide 0.5 MG/2 ML NEB NEB SCH ×2 (07:30→17:28)
[2021-07-22] MEDS: Pantoprazole 40 MG GRANULES PACKET PO SCH (08:07)
[2021-07-22] MEDS: Enoxaparin Sodium 40 MG/0.4 ML SYRINGE SC SCH (08:07)
[2021-07-22] MEDS: Aspirin Chewable 81 MG TAB PO SCH (08:07)
[2021-07-22] MEDS: Scopolamine 1.5 mg/72 hour Patch TD SCH (08:08)
[2021-07-22] MEDS: Polyethylene Glycol 3350 17 GM Packet PER TUBE SCH (10:04)
[2021-07-22] MEDS: OLANZapine 5 MG TAB PER TUBE SCH (21:03)
[2021-07-22] MEDS: Atorvastatin Calcium 20 MG TAB PER TUBE SCH (21:03)
[2021-07-23] MEDS: Cefepime 2 GM in Sodium Chloride 0.9% 100 ML IVPB SCH ×2 (04:25→17:02)
[2021-07-23 05:26] LABS: #Eosinphils 0.1 10x3/uL (0.0-0.5); #Monocytes 0.5 10x3/uL (0.0-1.1); %Basophils 0.4 % (0.0-2.0); %Eosinophils 0.6 % (0.0-6.0); %Lymphocytes 8.3 % (18.0-47.0); %Monocytes 5.1 % (0.0-10.0); %Neutrophils 83.8 % (40.0-75.0); Hemoglobin 9.2 g/dL (13.5-17.5); Mean Corpuscular HGB CONC 32.1 g/dL (32.0-36.0); Mean Corpuscular Hemoglobin 31.6 pg (27.0-33.0); Mean Corpuscular Volume 98.6 fl (81.2-95.1); Mean Platelet Volume 11.4 fl (7.4-10.4); Platelet Count 214 10x3/uL (150-450); RBC Distribution Width 16.2 % (11.5-14.5); Red Blood Cell (RBC) Count 2.91 10x6/uL (4.32-5.72); White Blood Cell (WBC) Count 10.7 10x3/uL (3.5-10.5)
[2021-07-23 05:31] LABS: Anion Gap 13 mmol/L (10-20); BUN (Urea Nitrogen) 37 mg/dL (8.4-25.7); Calc. Creatinine Clearance 109 mL/min (70-130); Calcium 8.7 mg/dL (7.8-10.44); Carbon Dioxide 31 mmol/L (23-31); Chloride 105 mmol/L (98-107); Glucose 115 mg/dL (83-110); Potassium 4.1 mmol/L (3.5-5.1); Sodium 145 mmol/L (136-145)
[2021-07-23] MEDS: Budesonide 0.5 MG/2 ML NEB NEB SCH ×2 (07:30→19:26)
[2021-07-23] MEDS: Aspirin Chewable 81 MG TAB PO SCH (08:52)
[2021-07-23] MEDS: Enoxaparin Sodium 40 MG/0.4 ML SYRINGE SC SCH (08:52)
[2021-07-23] MEDS: Pantoprazole 40 MG GRANULES PACKET PO SCH (08:53)
[2021-07-23] MEDS ORDERED: Glycopyrrolate 0.4 MG/ 2 ML VIAL SLOW IVP SCH (10:00)
[2021-07-23] MEDS: Polyethylene Glycol 3350 17 GM Packet PER TUBE SCH (14:32)
[2021-07-23] MEDS: Atorvastatin Calcium 20 MG TAB PER TUBE SCH (21:21)
[2021-07-23] MEDS: OLANZapine 5 MG TAB PER TUBE SCH (21:21)
[2021-07-24] MEDS: Cefepime 2 GM in Sodium Chloride 0.9% 100 ML IVPB SCH (04:31)
[2021-07-24 05:06] LABS: #Basophils 0.1 10x3/uL (0.0-0.2); #Eosinphils 0.1 10x3/uL (0.0-0.5); #Monocytes 0.8 10x3/uL (0.0-1.1); #Neutrophils 11.4 10x3/uL (1.5-8.4); %Basophils 0.5 % (0.0-2.0); %Eosinophils 0.5 % (0.0-6.0); %Lymphocytes 5.2 % (18.0-47.0); %Monocytes 5.9 % (0.0-10.0); %Neutrophils 86.4 % (40.0-75.0); Hemoglobin 9.7 g/dL (13.5-17.5); Mean Corpuscular HGB CONC 31.4 g/dL (32.0-36.0); Mean Corpuscular Hemoglobin 31.5 pg (27.0-33.0); Mean Corpuscular Volume 100.3 fl (81.2-95.1); Mean Platelet Volume 11.1 fl (7.4-10.4); Platelet Count 247 10x3/uL (150-450); Red Blood Cell (RBC) Count 3.08 10x6/uL (4.32-5.72); White Blood Cell (WBC) Count 13.2 10x3/uL (3.5-10.5)
[2021-07-24 05:29] LABS: ALT (SGPT) 27 U/L (8-55); AST (SGOT) 20 U/L (5-34); Albumin 3.5 g/dL (3.4-4.8); Alkaline Phosphatase 122 U/L (40-110); Anion Gap 14 mmol/L (10-20); BUN (Urea Nitrogen) 38 mg/dL (8.4-25.7); Bilirubin, Direct 0.1 mg/dL (0.1-0.3); Bilirubin, Total 0.2 mg/dL (0.2-1.2); Calc. Creatinine Clearance 100 mL/min (70-130); Calcium 9.1 mg/dL (7.8-10.44); Carbon Dioxide 32 mmol/L (23-31); Chloride 104 mmol/L (98-107); Glucose 133 mg/dL (83-110); Magnesium 2.4 mg/dL (1.6-2.6); Phosphorus 3.1 mg/dL (2.3-4.7); Potassium 4.5 mmol/L (3.5-5.1); Protein, Total 6.6 g/dL (5.8-8.1); Sodium 145 mmol/L (136-145)
[2021-07-24] MEDS: Budesonide 0.5 MG/2 ML NEB NEB SCH (08:12)
[2021-07-24] MEDS: Aspirin Chewable 81 MG TAB PO SCH (08:32)
[2021-07-24] MEDS: Enoxaparin Sodium 40 MG/0.4 ML SYRINGE SC SCH (08:33)
[2021-07-24] MEDS: Pantoprazole 40 MG GRANULES PACKET PO SCH (08:33)
[2021-07-24] MEDS: Polyethylene Glycol 3350 17 GM Packet PER TUBE SCH (10:16)
[2021-07-24 10:50] VITALS: BP 148/89
[2021-07-24 11:00] VITALS: BMI 29.1
[2021-07-24] MEDS ORDERED: Morphine 2 MG/ML VIAL SLOW IVP PRN (15:09)
== END 2021-07-24 15:50 | disposition hospice, inpatient (51) | DRG 870 ==
LOC: CSHERS 13:02 → CSHICU 16:20
PROVIDERS: ADMIT Emergency Medicine; ATTEND Internal Medicine
PROC: 3E033XZ Introduction of Vasopressor into Peripheral Vein, Percutaneous Approach (ICD-10-PCS; principal; 2021-07-12)
PROC: 5A1955Z Respiratory Ventilation, Greater than 96 Consecutive Hours (ICD-10-PCS; 2021-07-12)
PROC: 0BH18EZ Insertion of Endotracheal Airway into Trachea, Via Natural or Artificial Opening Endoscopic (ICD-10-PCS; 2021-07-12)
PROC: 3E03329 Introduction of Other Anti-infective into Peripheral Vein, Percutaneous Approach (ICD-10-PCS; 2021-07-12)
PROC: 3E043XZ Introduction of Vasopressor into Central Vein, Percutaneous Approach (ICD-10-PCS; 2021-07-12)
PROC: 06HY33Z Insertion of Infusion Device into Lower Vein, Percutaneous Approach (ICD-10-PCS; 2021-07-12)
PROC: B54BZZA Ultrasonography of Right Lower Extremity Veins, Guidance (ICD-10-PCS; 2021-07-12)
PROC: 0DH67UZ Insertion of Feeding Device into Stomach, Via Natural or Artificial Opening (ICD-10-PCS; 2021-07-12)
PROC: 0B9J8ZX Drainage of Left Lower Lung Lobe, Via Natural or Artificial Opening Endoscopic, Diagnostic (ICD-10-PCS; 2021-07-16)
PROC: 0B9G8ZX Drainage of Left Upper Lung Lobe, Via Natural or Artificial Opening Endoscopic, Diagnostic (ICD-10-PCS; 2021-07-16)
DX: A41.9 Sepsis, unspecified organism (principal); J96.21 Acute and chronic respiratory failure with hypoxia; I50.43 Acute on chronic combined systolic (congestive) and diastolic (congestive) heart failure; G93.41 Metabolic encephalopathy; R65.21 Severe sepsis with septic shock; J69.0 Pneumonitis due to inhalation of food and vomit; J18.9 Pneumonia, unspecified organism; J96.22 Acute and chronic respiratory failure with hypercapnia; N17.0 Acute kidney failure with tubular necrosis; I13.0 Hypertensive heart and chronic kidney disease with heart failure and stage 1 through stage 4 chronic kidney disease, or unspecified chronic kidney disease; F05 Delirium due to known physiological condition; E87.0 Hyperosmolality and hypernatremia; I69.354 Hemiplegia and hemiparesis following cerebral infarction affecting left non-dominant side; J44.0 Chronic obstructive pulmonary disease with (acute) lower respiratory infection; Z51.5 Encounter for palliative care; F03.91 Unspecified dementia, unspecified severity, with behavioral disturbance; E87.3 Alkalosis; I45.2 Bifascicular block; N39.0 Urinary tract infection, site not specified; N18.30 Chronic kidney disease, stage 3 unspecified; Z66 Do not resuscitate; I69.320 Aphasia following cerebral infarction; G47.33 Obstructive sleep apnea (adult) (pediatric); E78.5 Hyperlipidemia, unspecified; R45.1 Restlessness and agitation; I45.81 Long QT syndrome; I49.9 Cardiac arrhythmia, unspecified; R91.8 Other nonspecific abnormal finding of lung field; E78.1 Pure hyperglyceridemia; F32.A Depression, unspecified; I27.20 Pulmonary hypertension, unspecified; E87.6 Hypokalemia; R00.0 Tachycardia, unspecified; M19.90 Unspecified osteoarthritis, unspecified site; E66.01 Morbid (severe) obesity due to excess calories; Z20.822 Contact with and (suspected) exposure to COVID-19; Z68.29 Body mass index [BMI] 29.0-29.9, adult; Z79.82 Long term (current) use of aspirin; Z79.899 Other long term (current) drug therapy; Z87.11 Personal history of peptic ulcer disease; Z98.890 Other specified postprocedural states; Z87.891 Personal history of nicotine dependence; Z99.81 Dependence on supplemental oxygen
CPT/HCPCS: 31500; 36415; 36416; 36556; 36600; 51702; 71045; 71250; 80048; 80053; 80061; 80076; 80202; 81003; 81015; 82553; 82805; 83036; 83605; 83735; 83880; 84100; 84443; 84484; 85025; 85610; 85730; 87040; 87070; 87081; 87086; 87205; 87449; 87899; 89220; 93005; 93010; 93306; 94002; 94003; 94640; 94668; 94669; 94760; 96365; 96367; 96375; 96376; J0171; J0282; J0692; J1650; J1940; J1956; J2250; J2704; J3010; J3370; J3475; J3480; J3490; J7030; J7042; J7050; J7070; J7620; J7626; P9045; P9047; S0028; U0003; U0005

== ENCOUNTER 2021-07-24 16:28 | Inpatient (IN) | payer OTHER ==
[2021-07-24] MEDS ORDERED: Morphine 2 MG/ML VIAL SLOW IVP PRN (16:34)
[2021-07-24 16:39] VITALS: BP 119/76; TEMP 97.8
[2021-07-24] MEDS ORDERED: Scopolamine 1.5 mg/72 hour Patch TOP PRN (16:45)
[2021-07-24] MEDS ORDERED: Ondansetron PF 4 MG/2 ML Vial IVP PRN (16:45)
[2021-07-24] MEDS ORDERED: Morphine 2 MG/ML VIAL SLOW IVP SCH (16:45)
[2021-07-24] MEDS ORDERED: Lorazepam 2 MG/ML VIAL SLOW IVP PRN (16:45)
[2021-07-24] MEDS ORDERED: Acetaminophen 650 MG Suppository PR PRN (16:45)
== END 2021-07-24 17:50 | disposition expired | DRG 951 ==
LOC: CSHICU 16:28
PROVIDERS: ADMIT Family Medicine; ATTEND Family Medicine
DX: Z51.5 Encounter for palliative care (principal); J96.01 Acute respiratory failure with hypoxia; J18.9 Pneumonia, unspecified organism; I50.22 Chronic systolic (congestive) heart failure; I69.354 Hemiplegia and hemiparesis following cerebral infarction affecting left non-dominant side; F03.91 Unspecified dementia, unspecified severity, with behavioral disturbance; J44.9 Chronic obstructive pulmonary disease, unspecified; E78.5 Hyperlipidemia, unspecified; N18.30 Chronic kidney disease, stage 3 unspecified; E66.01 Morbid (severe) obesity due to excess calories; G47.33 Obstructive sleep apnea (adult) (pediatric); M19.90 Unspecified osteoarthritis, unspecified site; I13.0 Hypertensive heart and chronic kidney disease with heart failure and stage 1 through stage 4 chronic kidney disease, or unspecified chronic kidney disease; Z79.82 Long term (current) use of aspirin; Z79.899 Other long term (current) drug therapy; I69.320 Aphasia following cerebral infarction; Z87.11 Personal history of peptic ulcer disease; Z68.29 Body mass index [BMI] 29.0-29.9, adult
CPT/HCPCS: J2270